=== PATIENT | male | born 1995 | race Caucasian/White ===

== ENCOUNTER 2017-12-18 10:15 | Inpatient (IN) | payer SELFPAY ==
[2017-12-18 10:30] VITALS: BMI 23.4
--- NOTE | 2017-12-18 11:20 | HP ---
CIWA Score - CIWA Score Nausea/Vomitin Muscle Tremors: 3 Anxiety: 4-Mod. Anxious/Guarded Agitation: 0-Normal Activity Paroxysmal Sweats: No Perspiration Orientation: 1-Uncertain about Date Tacttile Disturbances: 0-None Auditory Disturbances: 0-None Visual Disturbances: 0-None Headache: 2-Mild CIWA-Ar Total Score: 12 Admission ROS BHS - HPI Chief Complaint: I need to get away from the alcohol Allergies/Adverse Reactions: Allergies Allergy/AdvReac Type Severity Reaction Status Date / Time No Known Allergies Allergy Verified 12/18/17 10:53 History of Present Illness: 22 yo gentleman here for detox from alcohol - was in detox a year ago in [place] but relapsed a few months ago. No seizures, denies black outs, gets shakey and feels sick to his stomach, anxious if he cannot drink. Although PATRICK .284 patient states he has not had a drink since last night around midnight. Exam Limitations: Clinical Condition - Ebola screening Have you traveled outside of the country in the last 21 days: No Have you had contact with anyone from an Ebola affected area: No Have you been sick,other than usual withdrawal symptoms: No Do you have a fever: No - Review of Systems Constitutional: Loss of Appetite, Malaise, Changes in sleep, Weakness EENT: reports: No Symptoms Reported Respiratory: reports: No Symptoms reported Cardiac: reports: No Symptoms Reported GI: reports: Nausea, Poor Appetite, Poor Fluid Intake : reports: Frequency Musculoskeletal: reports: No Symptoms Reported Integumentary: reports: Dryness Neuro: reports: Headache, Tremors Endocrine: reports: No Symptoms Reported Hematology: reports: No Symptoms Reported Psychiatric: reports: Judgement Intact, Mood/Affect Appropiate, Anxious Other Systems: Reviewed and Negative Patient History - Patient Medical History Hx Asthma: No Hx Chronic Obstructive Pulmonary Disease (COPD): No Hx Cancer: No Hx Cardiac Disorders: No Hx Congestive Heart Failure: No Hx Hypertension: No Hx Hypercholesterolemia: No Hx Pacemaker: No HX Cerebrovascular Accident: No Hx Seizures: No Hx Diabetes: No Hx Gastrointestinal Disorders: No Hx Liver Disease: No Hx Genitourinary Disorders: No Hx Sexually Transmitted Disorders: No Hx Renal Disease (ESRD): No Hx Thyroid Disease: No Hx Human Immunodeficiency Virus (HIV): No Hx Hepatitis C: No Hx Depression: Yes ("I'm depressed because I drink") Hx Suicide Attempt: No (denies ideation or attempt, no hospitalizations) Hx Bipolar Disorder: No Hx Schizophrenia: No - Patient Surgical History Past Surgical History: No - PPD History Previous Implant?: Yes Documented Results: Negative w/o proof Implanted On Prior R Admission?: No PPD to be Administered?: Yes - Reproductive History Patient is a Female of Child Bearing Age (11 -55 yrs old): No (male) - Smoking Cessation Smoking history: Current every day smoker Have you smoked in the past 12 months: Yes Aproximately how many cigarettes per day: 10 Hx Chewing Tobacco Use: No Initiated information on smoking cessation: Yes 'Breaking Loose' booklet given: 12/18/17 (give on floor) - Substance & Tx. History Hx Alcohol Use: Yes Hx Substance Use: No Substance Use Type: Alcohol Hx Substance Use Treatment: Yes (detox) - Substances Abused Alcohol Route: Oral Frequency: Daily Amount used: 2 pints of vodka Age of first use: 16 Date of Last Use: 12/17/17 Family Disease History - Family Disease History Family Disease History: Other: Father (living, healthy), Mother (living - healthy), Sister (one - healthy) Admission Physical Exam BHS - Vital Signs Vital Signs: Vital Signs - 24 hr 12/18/17 10:27 Temperature 97.9 F Pulse Rate 131 H Respiratory 18 Rate Blood Pressure 153/106 H - Physical General Appearance: Yes: Nourished, Appropriately Dressed, Moderate Distress, Tremorous, Anxious HEENTM: Yes: EOMI, Hearing grossly Normal, Normocephalic, Normal Voice, Pharynx Normal, Other (tongue coated) Respiratory: Yes: Normal Breath Sounds, No Respiratory Distress Neck: Yes: No masses,lesions,Nodules, Supple Breast: Yes: Breast Exam Deferred Cardiology: Yes: Regular Rhythm, Tachycardia Abdominal: Yes: Flat, Soft Genitourinary: Yes: Frequency Back: Yes: Normal Inspection Musculoskeletal: Yes: full range of Motion, Gait Steady Extremities: Yes: Normal Inspection, Normal Range of Motion, Non-Tender Neurological: Yes: Alert, Motor Strength 5/5, Normal Mood/Affect, Normal Response Integumentary: Yes: Normal Color, Dry, Warm Lymphatic: Yes: Within Normal Limits - Diagnostic (1) Alcohol dependence with uncomplicated withdrawal Current Visit: Yes Status: Chronic (2) Nicotine dependence Current Visit: Yes Status: Chronic Qualifiers: Nicotine product type: cigarettes Substance use status: uncomplicated Qualified Code(s): F17.210 - Nicotine dependence, cigarettes, uncomplicated (3) Dehydration Current Visit: Yes Status: Chronic Cleared for Admission [facility] - Detox or Rehab [facility] Level of Care: Medically Managed Detox Regimen/Protocol: Librium S Breath Alcohol Content Breath Alcohol Content: 0.284 Urine Drug Screen - Results Drug Screen Negative: Yes
[2017-12-18] MEDS ORDERED: MAGNESIUM HYDROX 2400MG/30ML ORAL SUSPENSION 30 ML CUP PO PRN (11:27)
[2017-12-18] MEDS ORDERED: chlordiazePOXIDE HCL 25 MG CAPSULE PO PRN (11:27)
[2017-12-18] MEDS ORDERED: LOPERAMIDE HCL 2 MG CAPSULE PO PRN (11:27)
[2017-12-18] MEDS ORDERED: MAG HYDROX/AL HYDROX/SIMETH 30 ML UNIT-DOSE CUP PO PRN (11:27)
[2017-12-18] MEDS ORDERED: hydrOXYzine PAMOATE 25 MG CAPSULE (FP) PO PRN (11:27)
[2017-12-18] MEDS ORDERED: guaiFENesin/D-METHORPHAN HB 10 ML UNIT-DOSE CUPS PO PRN (11:27)
[2017-12-18] MEDS ORDERED: MENTHOL/PHENOL 1 EACH UD MM PRN (11:27)
[2017-12-18] MEDS ORDERED: ACETAMINOPHEN 325 MG TABLET (FP) PO PRN (11:27)
[2017-12-18] MEDS ORDERED: MAGNESIUM CITRATE 300 ML BOTTLE PO PRN (11:27)
[2017-12-18] MEDS ORDERED: P-EPHED 60MG/TRIPROLIDI 2.5MG TABLET PO PRN (11:27)
[2017-12-18] MEDS ORDERED: IBUPROFEN 400 MG TABLET (FP) PO PRN (11:27)
[2017-12-18] MEDS ORDERED: chlordiazePOXIDE HCL 25 MG CAPSULE PO ONE (12:30)
[2017-12-18] MEDS: NICOTINE 21 MG/24 HOURS TOPICAL PATCH TD SCH (14:14)
[2017-12-18] MEDS: chlordiazePOXIDE HCL 25 MG CAPSULE PO SCH ×2 (17:28→22:24)
[2017-12-18 18:41] LABS: URINE APPEARANCE CLEAR; URINE BILIRUBIN NEGATIVE (<2.0 mg/dL); URINE COLOR YELLOW; URINE GLUCOSE (UA) NEGATIVE (NEGATIVE); URINE KETONE NEGATIVE (NEGATIVE); URINE LEUK ESTERASE NEGATIVE (NEGATIVE); URINE NITRITE NEGATIVE (NEGATIVE); URINE PROTEIN 1+ (NEGATIVE)
[2017-12-18 18:48] LABS: EPI CELLS RARE /HPF (FEW); URINE HYALINE CAST 1 /lpf; URINE MUCUS RARE
[2017-12-18] MEDS: THIAMINE HCL 100 MG TABLET (FP) PO SCH (22:24)
[2017-12-18] MEDS: MELATONIN 5 MG TABLETS PO PRN (22:24)
[2017-12-19] MEDS: chlordiazePOXIDE HCL 25 MG CAPSULE PO SCH ×4 (05:44→22:20)
[2017-12-19] MEDS: NICOTINE 21 MG/24 HOURS TOPICAL PATCH TD SCH (10:17)
[2017-12-19] MEDS: PRENATAL VITAMINS W/ FOLIC ACID TABLET (FP) PO SCH (10:17)
[2017-12-19 11:14] LABS: HEMATOCRIT 45.9 % (35.4-49); HEMOGLOBIN 15.6 GM/dL (11.7-16.9); MEAN CELL VOLUME 94.2 fl (80-96); MEAN PLT VOLUME 8.7 fl (7.5-11.1); PLATELET COUNT 108 K/MM3 (134-434); RBC 4.87 M/mm3 (4.00-5.60); RDW 14.3 % (11.9-15.9); WHITE BLOOD COUNT 4.6 K/mm3 (4.0-10.0)
[2017-12-19 11:55] LABS: ALBUMIN 3.9 g/dl (3.4-5.0); ALK PHOS 102 U/L (45-117); ANION GAP 13 MMOL/L (8-16); BILIRUBIN,TOTAL 2.2 mg/dL (0.2-1); BLOOD UREA NITROGEN 11 mg/dL (7-18); CALCIUM 9.4 mg/dL (8.5-10.1); CHLORIDE 97 mmol/L (98-107); CO2 30 mmol/L (21-32); CREATININE 0.6 mg/dL (0.55-1.3); GLUCOSE,RANDOM 84 mg/dL (74-106); SGOT/AST 136 U/L (15-37); SGPT/ALT 156 U/L (13-61); SODIUM 140 mmol/L (136-145); TOT PROT 6.8 g/dl (6.4-8.2)
[2017-12-19] MEDS ORDERED: PNEUMOC 13-VAL CONJ-DIP CRM/PF 0.5 ML DISP.SYRIN IM ONE (12:00)
[2017-12-19] MEDS ORDERED: FLU VACCINE QUAD 60 MCG/0.5 ML (MDV 18-19) IM ONE (12:00)
[2017-12-19] MEDS ORDERED: PNEUMOCOCCAL 23 VACCINE 0.5 ML VIAL IM ONE (12:00)
[2017-12-19] MEDS ORDERED: POTASSIUM CHLORIDE TABS 20 MEQ TABLET.ER (FP) PO ONE (14:21)
--- NOTE | 2017-12-19 14:21 | PN ---
[facility] CIWA - CIWA Score Nausea/Vomitin Muscle Tremors: 4-Moderate,w/Arms Extend Anxiety: 4-Mod. Anxious/Guarded Agitation: 4-Moderately Restless Paroxysmal Sweats: 3 Orientation: 0-Oriented Tacttile Disturbances: 0-None Auditory Disturbances: 0-None Visual Disturbances: 0-None Headache: 0-None Present CIWA-Ar Total Score: 18 BHS Progress Note (SOAP) Subjective: Tremor, interrupted sleep Objective: 12/19/17 14:14 Last Vital Signs Temp Pulse Resp BP Pulse Ox 96.4 F L 109 H 18 146/98 12/19/17 14:04 12/19/17 14:04 12/19/17 14:04 12/19/17 14:04 Laboratory Tests 12/18/17 12/19/17 12/19/17 14:19 07:30 07:30 WBC 4.6 RBC 4.87 Hgb 15.6 Hct 45.9 MCV 94.2 MCH 32.0 MCHC 34.0 RDW 14.3 Plt Count 108 L MPV 8.7 Sodium 140 Potassium 3.0 L Chloride 97 L Carbon Dioxide 30 Anion Gap 13 BUN 11 Creatinine 0.6 Creat Clearance w eGFR > 60 Random Glucose 84 Calcium 9.4 Total Bilirubin 2.2 H AST 136 H ALT 156 H Alkaline Phosphatase 102 Total Protein 6.8 Albumin 3.9 Urine Color Yellow Urine Appearance Clear Urine pH 7.0 Ur Specific [place] 1.019 Urine Protein 1+ H Urine Glucose (UA) Negative Urine Ketones Negative Urine Blood Negative Urine Nitrite Negative Urine Bilirubin Negative Urine Urobilinogen 2.0 Ur Leukocyte Esterase Negative Urine WBC (Auto) 2 Urine RBC (Auto) None Ur Epithelial Cells Rare Hyaline Casts 1 Urine Mucus Rare RPR Titer 12/19/17 07:30 WBC RBC Hgb Hct MCV MCH MCHC RDW Plt Count MPV Sodium Potassium Chloride Carbon Dioxide Anion Gap BUN Creatinine Creat Clearance w eGFR Random Glucose Calcium Total Bilirubin AST ALT Alkaline Phosphatase Total Protein Albumin Urine Color Urine Appearance Urine pH Ur Specific [place] Urine Protein Urine Glucose (UA) Urine Ketones Urine Blood Urine Nitrite Urine Bilirubin Urine Urobilinogen Ur Leukocyte Esterase Urine WBC (Auto) Urine RBC (Auto) Ur Epithelial Cells Hyaline Casts Urine Mucus RPR Titer Nonreactive Labs reviewed: K 3.0, elevated LFTs, abnormal UA Assessment: 12/19/17 14:17 Withdrawal sxs Noted with hypokalemia, elevated LFTs and abnormal UA Plan: Continue detox Hypokalemia: K Dur 40 Meq PO liquid x 2 doses then K Dur 20 Meq PO bid, repeat K level in AM Elevated LFTs: repeat LFTs, send hepatitis C panel Abnormal UA: encouraged PO water hydration, repeat UA
[2017-12-19] MEDS ORDERED: POTASSIUM CHLORIDE ORAL LIQUID 20 MEQ/15 ML PO ONE (20:00)
[2017-12-19] MEDS: THIAMINE HCL 100 MG TABLET (FP) PO SCH (22:20)
[2017-12-19] MEDS: MELATONIN 5 MG TABLETS PO PRN (22:20)
[2017-12-20] MEDS: chlordiazePOXIDE HCL 25 MG CAPSULE PO SCH ×2 (06:11→10:17)
--- NOTE | 2017-12-20 10:15 | PN ---
[facility] CIWA - CIWA Score Nausea/Vomitin-Mild Nausea/No Vomiting Muscle Tremors: 2 Anxiety: 2 Agitation: 3 Paroxysmal Sweats: 2 Orientation: 0-Oriented Tacttile Disturbances: 1-Very Mild Itch/Numbness Auditory Disturbances: 0-None Visual Disturbances: 1-Very Mild Sensitivity Headache: 0-None Present CIWA-Ar Total Score: 12 S Progress Note (SOAP) Subjective: diarrhea, interrupted sleep, body aches Objective: 12/20/17 10:15 Vital Signs Temperature 97.1 F L 12/20/17 09:15 Pulse Rate 99 H 12/20/17 09:15 Respiratory Rate 20 12/20/17 09:15 Blood Pressure 143/93 12/20/17 09:15 O2 Sat by Pulse Oximetry (%) Laboratory Last Values WBC 4.6 K/mm3 (4.0-10.0) 12/19/17 07:30 RBC 4.87 M/mm3 (4.00-5.60) 12/19/17 07:30 Hgb 15.6 GM/dL (11.7-16.9) 12/19/17 07:30 Hct 45.9 % (35.4-49) 12/19/17 07:30 MCV 94.2 fl (80-96) 12/19/17 07:30 MCH 32.0 pg (25.7-33.7) 12/19/17 07:30 MCHC 34.0 g/dl (32.0-35.9) 12/19/17 07:30 RDW 14.3 % (11.9-15.9) 12/19/17 07:30 Plt Count 108 K/MM3 (134-434) L 12/19/17 07:30 MPV 8.7 fl (7.5-11.1) 12/19/17 07:30 Sodium 140 mmol/L (136-145) 12/19/17 07:30 Potassium 3.0 mmol/L (3.5-5.1) L 12/19/17 07:30 Chloride 97 mmol/L (98-107) L 12/19/17 07:30 Carbon Dioxide 30 mmol/L (21-32) 12/19/17 07:30 Anion Gap 13 MMOL/L (8-16) 12/19/17 07:30 BUN 11 mg/dL (7-18) 12/19/17 07:30 Creatinine 0.6 mg/dL (0.55-1.3) 12/19/17 07:30 Creat Clearance w eGFR > 60 (>60) 12/19/17 07:30 Random Glucose 84 mg/dL (74-106) 12/19/17 07:30 Calcium 9.4 mg/dL (8.5-10.1) 12/19/17 07:30 Total Bilirubin 2.2 mg/dL (0.2-1) H 12/19/17 07:30 AST 136 U/L (15-37) H 12/19/17 07:30 ALT 156 U/L (13-61) H 12/19/17 07:30 Alkaline Phosphatase 102 U/L (45-117) 12/19/17 07:30 Total Protein 6.8 g/dl (6.4-8.2) 12/19/17 07:30 Albumin 3.9 g/dl (3.4-5.0) 12/19/17 07:30 Urine Color Yellow 12/18/17 14:19 Urine Appearance Clear 12/18/17 14:19 Urine pH 7.0 (5.0-8.0) 12/18/17 14:19 Ur Specific [place] 1.019 (1.010-1.035) 12/18/17 14:19 Urine Protein 1+ (NEGATIVE) H 12/18/17 14:19 Urine Glucose (UA) Negative (NEGATIVE) 12/18/17 14:19 Urine Ketones Negative (NEGATIVE) 12/18/17 14:19 Urine Blood Negative (NEGATIVE) 12/18/17 14:19 Urine Nitrite Negative (NEGATIVE) 12/18/17 14:19 Urine Bilirubin Negative (<2.0 mg/dL) 12/18/17 14:19 Urine Urobilinogen 2.0 mg/dL (0.2-1.0) 12/18/17 14:19 Ur Leukocyte Esterase Negative (NEGATIVE) 12/18/17 14:19 Urine WBC (Auto) 2 /hpf (3-5) 12/18/17 14:19 Urine RBC (Auto) None /hpf (0-3) 12/18/17 14:19 Ur Epithelial Cells Rare /HPF (FEW) 12/18/17 14:19 Hyaline Casts 1 /lpf 12/18/17 14:19 Urine Mucus Rare 12/18/17 14:19 RPR Titer Nonreactive (NONREACTIVE) 12/19/17 07:30 repeat CMP lab results pending AOX3 no distress no adventitious breath sounds Abd non tender , non-distended full ROM ambulating in the unit Assessment: 12/20/17 13:18 withdrawal sx Plan: pending labs increase fluids continue detox continue to monitor
[2017-12-20] MEDS: NICOTINE 21 MG/24 HOURS TOPICAL PATCH TD SCH (10:17)
[2017-12-20] MEDS: POTASSIUM CHLORIDE TABS 20 MEQ TABLET.ER (FP) PO SCH ×2 (10:17→23:16)
[2017-12-20] MEDS: PRENATAL VITAMINS W/ FOLIC ACID TABLET (FP) PO SCH (10:17)
[2017-12-20 15:21] LABS: URINE APPEARANCE CLEAR; URINE BILIRUBIN NEGATIVE (<2.0 mg/dL); URINE COLOR YELLOW; URINE GLUCOSE (UA) NEGATIVE (NEGATIVE); URINE KETONE NEGATIVE (NEGATIVE); URINE LEUK ESTERASE NEGATIVE (NEGATIVE); URINE NITRITE NEGATIVE (NEGATIVE); URINE PROTEIN NEGATIVE (NEGATIVE); URINE UROBILINOGEN NEGATIVE mg/dL (0.2-1.0)
[2017-12-20 15:31] LABS: ALBUMIN 4.2 g/dl (3.4-5.0); BILIRUBIN,DIRECT 0.5 mg/dL (0.0-0.2); BILIRUBIN,TOTAL 1.6 mg/dL (0.2-1); POTASSIUM 4.5 mmol/L (3.5-5.1); TOT PROT 7.2 g/dl (6.4-8.2)
[2017-12-20] MEDS: chlordiazePOXIDE 5 MG CAPSULE PO SCH ×2 (17:21→23:16)
[2017-12-20] MEDS: THIAMINE HCL 100 MG TABLET (FP) PO SCH (23:16)
[2017-12-20] MEDS: MELATONIN 5 MG TABLETS PO PRN (23:17)
[2017-12-21] MEDS: chlordiazePOXIDE 5 MG CAPSULE PO SCH ×2 (05:47→10:08)
[2017-12-21] MEDS: PRENATAL VITAMINS W/ FOLIC ACID TABLET (FP) PO SCH (10:08)
[2017-12-21] MEDS: POTASSIUM CHLORIDE TABS 20 MEQ TABLET.ER (FP) PO SCH (10:08)
[2017-12-21] MEDS: NICOTINE 21 MG/24 HOURS TOPICAL PATCH TD SCH (10:10)
--- NOTE | 2017-12-21 11:11 | PN ---
[facility] Progress Note Note: PATIENT TOLERATING DETOX WELL. STATES HAVING MILD NAUSEA BUT FEELS BETTER. Laboratory Tests 12/18/17 12/19/17 12/19/17 14:19 07:30 07:30 WBC 4.6 RBC 4.87 Hgb 15.6 Hct 45.9 MCV 94.2 MCH 32.0 MCHC 34.0 RDW 14.3 Plt Count 108 L MPV 8.7 Sodium 140 Potassium 3.0 L Chloride 97 L Carbon Dioxide 30 Anion Gap 13 BUN 11 Creatinine 0.6 Creat Clearance w eGFR > 60 Random Glucose 84 Calcium 9.4 Total Bilirubin 2.2 H Direct Bilirubin AST 136 H ALT 156 H Alkaline Phosphatase 102 Total Protein 6.8 Albumin 3.9 Urine Color Yellow Urine Appearance Clear Urine pH 7.0 Ur Specific [place] 1.019 Urine Protein 1+ H Urine Glucose (UA) Negative Urine Ketones Negative Urine Blood Negative Urine Nitrite Negative Urine Bilirubin Negative Urine Urobilinogen 2.0 Ur Leukocyte Esterase Negative Urine WBC (Auto) 2 Urine RBC (Auto) None Ur Epithelial Cells Rare Hyaline Casts 1 Urine Mucus Rare RPR Titer 12/19/17 12/20/17 12/20/17 07:30 06:17 08:55 WBC RBC Hgb Hct MCV MCH MCHC RDW Plt Count MPV Sodium Potassium 4.5 Chloride Carbon Dioxide Anion Gap BUN Creatinine Creat Clearance w eGFR Random Glucose Calcium Total Bilirubin 1.6 H Direct Bilirubin 0.5 H AST 139 H ALT 152 H Alkaline Phosphatase 112 Total Protein 7.2 Albumin 4.2 Urine Color Yellow Urine Appearance Clear Urine pH 7.0 Ur Specific [place] 1.017 Urine Protein Negative Urine Glucose (UA) Negative Urine Ketones Negative Urine Blood Negative Urine Nitrite Negative Urine Bilirubin Negative Urine Urobilinogen Negative Ur Leukocyte Esterase Negative Urine WBC (Auto) Urine RBC (Auto) Ur Epithelial Cells Hyaline Casts Urine Mucus RPR Titer Nonreactive Vital Signs Temperature 97.1 F L 12/21/17 09:30 Pulse Rate 108 H 12/21/17 09:30 Respiratory Rate 18 12/21/17 09:30 Blood Pressure 136/96 12/21/17 09:30 O2 Sat by Pulse Oximetry (%) SKIN WARM AND DRY ALERT AND ORIENTED X 3 CAR S1S2 RESP CTA BL EXT FULL ROM A/P; WITHDRAWAL SYNDROME CONTINUE DETOX ENCOURAGE ORAL FLUIDS CONTINUE TO MONITOR CLINICALLY
--- NOTE | 2017-12-21 13:18 | EKG ---
Test Reason : Blood Pressure : / mmHG Vent. Rate : 112 BPM Atrial Rate : 112 BPM P-R Int : 144 ms QRS Dur : 082 ms QT Int : 326 ms P-R-T Axes : 057 044 026 degrees QTc Int : 444 ms SINUS TACHYCARDIA OTHERWISE NORMAL ECG NO PREVIOUS ECGS AVAILABLE Confirmed by MD STANISLAW, SARAH ([id number]) on 12/21/2017 1:18:09 PM Referred By: ERIC OSPINA Confirmed By:SARAH DOVER MD
[2017-12-21] MEDS: chlordiazePOXIDE HCL 10 MG CAPSULE PO SCH ×2 (17:30→22:10)
[2017-12-21] MEDS: MELATONIN 5 MG TABLETS PO PRN (22:10)
[2017-12-21] MEDS: THIAMINE HCL 100 MG TABLET (FP) PO SCH (22:10)
[2017-12-22] MEDS: chlordiazePOXIDE HCL 10 MG CAPSULE PO SCH (05:19)
[2017-12-22 09:09] VITALS: BP 133/86; PULSE 105; TEMP 96.8
--- NOTE | 2017-12-22 11:22 | DS ---
[facility] Detox Discharge Summary Admission Date: 12/18/17 Discharge Date: 12/22/17 - History Present History: Alcohol Dependence - Physical Exam Results Vital Signs: Vital Signs Temperature 96.8 F L 12/22/17 09:08 Pulse Rate 105 H 12/22/17 09:08 Respiratory Rate 18 12/22/17 09:08 Blood Pressure 133/86 12/22/17 09:08 O2 Sat by Pulse Oximetry (%) Pertinent Admission Physical Exam Findings: PATIENT TOLERATED DETOX REGIMEN WITHOUT ADVERSE EFFECT. MEDICALLY STABLE. DENIES SI/HI. ALERT AND ORIENTED X 3. SKIN WARM AND DRY. AMB AD JONATAN. PATIENT TO FOLLOW UP WITH AA UPON DISCHARGE. PATIENT ENCOURAGED TO ATTEND GROUP MEETINGS TO PREVENT RELAPSE AND TO SEEK MEDICAL ATTENTION IF WITHDRAWAL SYMPTOMS. D/C INSTRUCTIONS GIVEN TO PATIENT BY STAFF. - Treatment Hospital Course: Detox Protocol Followed, Detoxed Safely, Responded well, Discharged Condition Good - Medication Discharge Medications: Ambulatory Orders NK [No Known Home Medication] 12/18/17 - Diagnosis (1) Alcohol dependence with uncomplicated withdrawal Current Visit: Yes Status: Resolved - AMA Did Patient Leave Against Medical Advice: No
== END 2017-12-22 09:11 | disposition home or self-care (01) | DRG 775 ==
LOC: YASAS 10:15 → Y3N 12:13
PROC: HZ2ZZZZ Detoxification Services for Substance Abuse Treatment (ICD-10-PCS; principal; 2017-12-18)
DX: F10.230 Alcohol dependence with withdrawal, uncomplicated (principal); F17.210 Nicotine dependence, cigarettes, uncomplicated; F32.9 Major depressive disorder, single episode, unspecified; E87.6 Hypokalemia; E86.0 Dehydration; R94.5 Abnormal results of liver function studies; R82.90 Unspecified abnormal findings in urine; R00.0 Tachycardia, unspecified
CPT/HCPCS: 36415; 80053; 80076; 81003; 81015; 84132; 85027; 86593; 87522; 93005; 93010